=== PATIENT | female | born 1940 | race Caucasian/White ===

== ENCOUNTER 2017-06-08 06:01 | Observation (INO) | payer MEDICARE, OTHER ==
--- NOTE | 2017-06-08 06:14 | ERNOTE ---
Medical Problem HPI - Narrative Date of Service: 06/08/17 - General Time Seen by Provider: 06/08/17 06:03 Source: patient Exam Limitations: no limitations - Immun/Allergies/Home Medications Immunizations: IMMUNIZATION HX Immunizations Up to Date Yes History of Influenza Vaccine No Hx Pneumococcal Vaccination No Allergies/Adverse Reactions: Allergies gabapentin [From Neurontin] Allergy (Severe, Verified 06/08/17 06:12) Swelling (Other) Dizziness Penicillins Adverse Reaction (Mild, Verified 06/08/17 06:12) BLISTERS ON HANDS/FEET sulfadiazine [Sulfadiazine] Adverse Reaction (Mild, Verified 06/08/17 06:12) N/V Home Medications: HOME MEDICATIONS Omeprazole [Prilosec] 40 mg PO DAILY 12/21/13 [Last Taken 04/07/14] Polyethylene Glycol 3350 [Miralax] 17 gm PO HS 11/20/15 [Last Taken Unknown] traMADol HCL [Ultram] 50 mg PO BID PRN 11/20/15 [Last Taken Unknown] Levothyroxine Sodium [Synthroid] 50 mcg PO DAILY 06/08/17 [Last Taken Unknown] Methotrexate Sodium [Methotrexate] 15 mg PO Q7D 06/08/17 [Last Taken Unknown] - History of Present History Narrative: Patient presents to the emergency room after she started having substernal chest pain approximately 2 hours prior to presentation to the ER. She was brought in via ambulance for chest pain which is substernal and it raises into the upper chest area. In route EMS staff administered aspirin 325 and one nitroglycerin tablet sublingually and the pain went away. Patient denies having had any heart attacks in the past or coronary artery disease she denies any syncope or near syncope symptoms there was no radiation of the chest pain anywhere history of diaphoresis Review of Systems - Review of Systems Constitutional: Present: no symptoms reported EYE: Present: no symptoms reported ENT: Present: no symptoms reported Respiratory: Present: no symptoms reported Cardiology: Present: See HPI Gastrointestinal/Abdominal: Present: no symptoms reported Genitourinary: Present: no symptoms reported Musculoskeletal: Present: no symptoms reported Skin: Present: no symptoms reported - Patient's Past Medical History Patient History - Medical: Arthritis, GERD, Other Patient History - Cardiac/Respiratory: No pertinent hx Patient History - Cancer: No Hx of Cancer Patient History - Surgical Procedures: Colonoscopy, Hysterectomy, Other Patient History - Other: None - Family History Father Family History - Medical: , Rheumatoid Arthritis Family History - Cardiac/Respiratory: Coronary Heart Disease Mother Family History - Medical: Family History - Cardiac/Respiratory: Coronary Heart Disease, Myocardial Infarction - Social History Abuse History: No History of abuse Psych History: No pertinent hx - Immunizations Immunizations Up to Date: Yes Hx Pneumococcal Vaccination: No History of Influenza Vaccine: No Physical Exam - Physical Exam General Appearance: Present: wd/wn, alert, no apparent distress - by the time I saw the patient she was completely chest pain-free sitting up in bed without any complaints. Head Exam: Present: normal inspection, no evidence of injury Respiratory: Present: no respiratory distress, normal breath sounds, no accessory muscle use, chest nontender, lungs clear Cardiovascular/Chest: Present: regular rate, rhythm, no murmur, normal peripheral pulses Extremity Exam: Present: normal inspection, normal range of motion ED Progress - Results and Orders Patient's Lab Results:: I have reviewed the patient's lab results. - Vital Signs Patient's Vital Signs:: I have reviewed the patient's vital signs. - EKG EKG: NSR EKG read: Interp. by me - I do not see any signs of ST segment depression or elevation patient's rhythm is normal sinus. - X-Ray X-Ray #1 X-Ray: chest - read as no acute process, and same as previous CXR Plan - Plan Plan: This patient had chest pain at rest which was improved with 1 nitroglycerin and 325 mg of aspirin. She subsequently in our emergency room had more chest pains approximately 4 out of 10 which 2 mg of morphine reduced to 1 out of 10. It is the opinion of this examiner that this patient needs to be admitted to be observed for a second troponin level. Her EKG has remained normal sinus rhythm through out. The hospitalist was contacted in regards to this patient. This case was discussed with Dr. Nava who agreed to admit the patient for observation for chest pain. Departure Clinical Impression: Chest pain Qualifiers: Chest pain type: unspecified Qualified Code(s): R07.9 - Chest pain, unspecified - Departure Disposition: [facility] Condition: Fair Referrals: Zahira Han DO [Primary Care Provider] -
[2017-06-08 06:18] LABS: Hematocrit 39.6 % (37.0-47.0); Hemoglobin 13.2 gm/dL (12.5-16.0); Mean Cell Volume 97.5 fl (78-100); Mean Corpuscular Hemoglobin 32.5 pg (27-31); Mean Corpuscular Hgb Conc 33.3 g/dl (32-36); Neutrophil # 5.9 K/mm3 (1.3-6.0); Neutrophil % 79.8 % (42-75.0); Platelet Count 185 K/mm3 (150-450); Red Blood Count 4.06 M/mm3 (4.2-5.4); Red Cell Distribution Width 13.2 % (11.5-14.0); White Blood Count 7.4 K/mm3 (4.0-10.5)
[2017-06-08] MEDS ORDERED: MORPHINE SULFATE 2 MG/ML DISP.SYRIN ONE (06:37)
[2017-06-08 06:42] LABS: Troponin I Less than 0.017 ng/ml (0.00-0.10)
[2017-06-08] MEDS ORDERED: MORPHINE SULFATE 2 MG/ML DISP.SYRIN IV ONE (06:44)
[2017-06-08] MEDS ORDERED: NORMAL SALINE 1,000 ML IV ONE (06:44)
[2017-06-08 06:47] LABS: ALT 41 U/L (19-67); AST 77 U/L (0-48); Albumin * 3.8 gm/dl (3.4-5.0); Alkaline Phosphatase * 92 U/L (50-170); Anion Gap 11.1 mmol/L (6.8-13.8); BUN/Creatinine Ratio 18.5 (9.0-21.6); Bilirubin, Total 0.3 mg/dL (0.0-1.1); Blood Urea Nitrogen 15 mg/dL (3-23); CKMB 0.6 ng/mL (0.0-9.0); Ca. Corrected For Albumin 8.6 mg/dL (8.4-10.2); Calcium * 8.8 mg/dL (7.9-10.9); Carbon Dioxide 29.9 mmol/L (24-32.6); Chloride 103 mmol/L (97-106); Glucose * 101 mg/dL (70-110); Sodium 140 mmol/L (132-142); Total Protein 6.9 gm/dL (6.2-8.2)
[2017-06-08] MEDS ORDERED: PANTOPRAZOLE SODIUM 40 MG in NORMAL SALINE 100 ML IV ONE (08:42)
[2017-06-08] MEDS ORDERED: HYDROcodone/ACETAMINOPHEN 1 EACH TABLET PO PRN (08:43)
--- NOTE | 2017-06-08 08:51 | HP ---
Chief Complaint - Chief Complaint Date of Service: 06/08/17 Time of Service: 08:45 Chief Complaint: chest pain History of Present Illness: Luisana Alves, is a 76-year-old white female, with previous medical history of rheumatoid arthritis, spinal stenosis, hyperlipidemia, hypothyroidism , gastroesophageal reflux disease, patient of Dr. Zahira Han, who was admitted on 06/08/2017 because of chest pain. The night before admission, the patient started having substernal chest pain, starting from her epigastric area to her suprasternal notch area, sharp in character, more than 10 over 10, nonradiating. She took her Vicodin done and it did not help so she went to the emergency room where her first EKG and troponin were within normal limits she was then admitted under our chest pain protocol. In transit, she got ASA and NTG and by the time she arrived at the ER she was CP free. The patient had stress test 1 year ago for similar symptoms and that was negative. - Patient's Past Medical History Patient History - Medical: Arthritis, GERD, Rheumatoid Arthritis, Other Patient History - Cardiac/Respiratory: No pertinent hx Patient History - Cancer: No Hx of Cancer Patient History - Surgical Procedures: Colonoscopy, Hysterectomy, Other Patient History - Other: None - Family History Father Family History - Medical: , Rheumatoid Arthritis Family History - Cardiac/Respiratory: Coronary Heart Disease Mother Family History - Medical: Family History - Cardiac/Respiratory: Coronary Heart Disease, Myocardial Infarction - Social History Living Situations: home Abuse History: No History of abuse Psych History: No pertinent hx Smoking Status: Former smoker Alcohol Use: occasionally Drug Use: none - Immunizations Immunizations Up to Date: Yes Hx Pneumococcal Vaccination: No History of Influenza Vaccine: No Review Of Systems (GEN) - Review of Systems Generalized/Overall Review: Absent: Chills, Fever Respiratory: Absent: Cough, Shortness of Breath, Orthopnea Cardiac: Present: Chest Pain. Absent: Edema, Palpitations Abdominal: Present: Nausea, Vomiting Genitourinary: Absent: Urgency, Frequency Musculoskeletal: Present: Joint Pain Immunizations: IMMUNIZATION HX Immunizations Up to Date Yes History of Influenza Vaccine No Hx Pneumococcal Vaccination No Allergies/Adverse Reactions: Allergies Allergy/AdvReac Type Severity Reaction Status Date / Time gabapentin [From Neurontin] Allergy Severe Swelling Verified 06/08/17 06:12 (Other) Penicillins AdvReac Mild BLISTERS Verified 06/08/17 06:12 ON HANDS/FEET sulfadiazine [Sulfadiazine] AdvReac Mild N/V Verified 06/08/17 06:12 Home Medications: HOME MEDICATIONS Omeprazole [Prilosec] 40 mg PO DAILY 12/21/13 [Last Taken 04/07/14] Polyethylene Glycol 3350 [Miralax] 17 gm PO HS 11/20/15 [Last Taken Unknown] traMADol HCL [Ultram] 50 mg PO BID PRN 11/20/15 [Last Taken Unknown] Levothyroxine Sodium [Synthroid] 50 mcg PO DAILY 06/08/17 [Last Taken Unknown] Methotrexate Sodium [Methotrexate] 15 mg PO Q7D 06/08/17 [Last Taken Unknown] Exam - Exam Vital Signs: Vital Signs - Last Taken Temp 36.5 C 06/08/17 06:02 Pulse 71 06/08/17 08:02 Resp 12 06/08/17 08:02 BP 143/80 06/08/17 08:02 Pulse Ox 96 06/08/17 08:02 Constitutional: Present: Alert, Oriented x3, Cooperative ENT Exam: Present: hearing grossly normal Eye Exam: bilateral eye: normal inspection, PERRL, EOMI Neck: Present: supple Respiratory: Present: normal breath sounds, No rales, No wheezing Cardiovascular/Chest: Present: regular rate, rhythm, no JVD, no murmur Abdomen: Present: Normal bowel sounds, soft, nondistended, tender - slightly, epigastric Extremity: Present: no pedal edema, no calf tenderness Diagnostic Studies: Laboratory Results WBC 7.4 K/mm3 (4.0-10.5) 06/08/17 06:15 RBC 4.06 M/mm3 (4.2-5.4) L 06/08/17 06:15 Hgb 13.2 gm/dL (12.5-16.0) 06/08/17 06:15 Hct 39.6 % (37.0-47.0) 06/08/17 06:15 MCV 97.5 fl (78-100) 06/08/17 06:15 MCH 32.5 pg (27-31) H 06/08/17 06:15 MCHC 33.3 g/dl (32-36) 06/08/17 06:15 RDW 13.2 % (11.5-14.0) 06/08/17 06:15 Plt Count 185 K/mm3 (150-450) 06/08/17 06:15 MPV 11.0 fl (6.0-9.5) H 06/08/17 06:15 Immature Gran % (Auto) 0.40 % (0.001-0.429) 06/08/17 06:15 Immature Gran # (Auto) 0.03 K/mm3 (0.000-0.0310) 06/08/17 06:15 Neutrophils % 79.8 % (42-75.0) H 06/08/17 06:15 Lymphocytes % 9.6 % (20-51) L 06/08/17 06:15 Monocytes % 8.1 % (0.0-9) 06/08/17 06:15 Eosinophils % 1.8 % (0.0-3.0) 06/08/17 06:15 Basophils % 0.3 % (0.0-1.0) 06/08/17 06:15 Nucleated RBC % 0.0 k/mm3 (0-1) 06/08/17 06:15 Neutrophils # 5.9 K/mm3 (1.3-6.0) 06/08/17 06:15 Lymphocytes # 0.7 k/mm3 (1.5-3.5) L 06/08/17 06:15 Monocytes # 0.6 k/mm3 (0.0-1.0) 06/08/17 06:15 Eosinophils # 0.1 k/mm3 (0.0-0.7) 06/08/17 06:15 Absolute Basophils 0.0 k/mm3 (0.0-0.1) 06/08/17 06:15 Sodium 140 mmol/L (132-142) 06/08/17 06:15 Plasma Sodium 140 mmol/L (130-142) 06/08/17 06:15 Potassium 4.0 mmol/L (3.4-4.6) 06/08/17 06:15 Chloride 103 mmol/L (97-106) 06/08/17 06:15 Carbon Dioxide 29.9 mmol/L (24-32.6) 06/08/17 06:15 Anion Gap 11.1 mmol/L (6.8-13.8) 06/08/17 06:15 BUN 15 mg/dL (3-23) 06/08/17 06:15 Creatinine 0.81 mg/dL (0.4-1.4) 06/08/17 06:15 Est GFR (Non-Af Amer) 73 mL/min (60-130) 06/08/17 06:15 BUN/Creatinine Ratio 18.5 (9.0-21.6) 06/08/17 06:15 Random Glucose 101 mg/dL (70-110) 06/08/17 06:15 Calcium 8.8 mg/dL (7.9-10.9) 06/08/17 06:15 Calcium Adj for Albumin 8.6 mg/dL (8.4-10.2) 06/08/17 06:15 Total Bilirubin 0.3 mg/dL (0.0-1.1) 06/08/17 06:15 AST 77 U/L (0-48) H 06/08/17 06:15 ALT 41 U/L (19-67) 06/08/17 06:15 Alkaline Phosphatase 92 U/L (50-170) 06/08/17 06:15 CK-MB (CK-2) 0.6 ng/mL (0.0-9.0) 06/08/17 06:15 Troponin I Less than 0.017 ng/ml (0.00-0.10) 06/08/17 06:15 Total Protein 6.9 gm/dL (6.2-8.2) 06/08/17 06:15 Albumin 3.8 gm/dl (3.4-5.0) 06/08/17 06:15 Assessment/Plan - Assessment/Plan (1) GERD (gastroesophageal reflux disease) Problem: Acute (2) Hypothyroidism Problem: Acute (3) Rheumatoid arthritis Problem: Acute (4) Chest pain Problem: Acute Qualifiers: Chest pain type: unspecified Qualified Code(s): R07.9 - Chest pain, unspecified (5) Abdominal pain Problem: Acute Qualifiers: Abdominal location: epigastric Qualified Code(s): R10.13 - Epigastric pain (6) Nausea Problem: Acute
[2017-06-08] MEDS ORDERED: MORPHINE SULFATE 10 MG/ML SYRG IV PRN (08:56)
[2017-06-08 09:10] LABS: Amylase * 67 U/L (25-115); Lipase 185 U/L (73-393)
[2017-06-08] MEDS: LEVOTHYROXINE SODIUM 50 MCG TABLET PO SCH (10:35)
[2017-06-08] MEDS ORDERED: POLYETHYLENE GLYCOL 3350 119 GM BTL PO SCH (21:00)
[2017-06-09] MEDS: LEVOTHYROXINE SODIUM 50 MCG TABLET PO SCH (06:21)
[2017-06-09 06:45] VITALS: BP 141/63
[2017-06-09] MEDS ORDERED: METHOTREXATE SODIUM 2.5 MG TABLET PO SCH (09:00)
--- NOTE | 2017-06-09 09:10 | DS ---
(1) Chest pain Problem: Acute Qualifiers: Chest pain type: unspecified Qualified Code(s): R07.9 - Chest pain, unspecified (2) GERD (gastroesophageal reflux disease) Problem: Chronic Description of Stay: ADMISSION DATE: 06/08/2017 DISCHARGE DATE: 06/09/[address] Nava: Luisana Alves, is a 76-year-old white female, with previous medical history of rheumatoid arthritis, spinal stenosis, hyperlipidemia, hypothyroidism , gastroesophageal reflux disease, patient of Dr. Zahira Han, who was admitted on 06/08/2017 because of chest pain. The night before admission, the patient started having substernal chest pain, starting from her epigastric area to her suprasternal notch area, sharp in character, more than 10 over 10, nonradiating. She took her Vicodin done and it did not help so she went to the emergency room where her first EKG and troponin were within normal limits she was then admitted under our chest pain protocol. In transit, she got ASA and NTG and by the time she arrived at the ER she was CP free. The patient had stress test 1 year ago for similar symptoms and that was negative. HOSPITAL COURSE: The patient was admitted to hospital for chest pain. She was monitored overnight on telemetry and had serial EKGs and cardiac enzymes, all of which were unremarkable. The patients presentation is most likely consistent with a GI etiology. The patient is already supposed to have an outpatient ERCP so I will make sure that this gets scheduled at [facility]. At the time of discharge, the patient was symptom free and felt back to her baseline. The patient was discharged home in stable condition. FOLLOW-UP APPOINTMENTS: -PCP, Dr. Han, on 06/09/2017 after being discharged from the hospital NEW OR CHANGED MEDICATIONS: None DISCONTINUED MEDICATIONS: None RADIOLOGY REPORTS: PA and lateral chest x-ray on 06/08/2017 showed: The lungs are hyperinflated; correlate for COPD. No focal consolidation. No pneumothorax or pleural effusion. Calcified granulomas again demonstrated. The cardiac silhouette mediastinal contours are unchanged. Atherosclerotic changes are present throughout the thoracic and visualized upper abdominal aorta. Scattered areas of parenchymal scarring. Pulmonary vasculature is normal. Degenerative changes. Decreased osseous mineralization. IMPRESSION: No acute pulmonary findings. Procedures Performed: none Discharge Disposition: Home self care Disposition: Home self-care Condition: Stable Discharge Activity: Activity as tolerated Discharge Diet: General/regular food Referrals: Zahira Han DO [Primary Care Provider] - Problem Oriented Discharge Instructions to Patient/Family: Gastroesophageal Reflux Disease, Adult, [id number], Chest Wall Pain Additional Patient Instructions (free text): Patient will follow-up with PCP today (06/09/2017) right after discharge from the hospital Complete Home Medications List: Complete Home Medication List: Omeprazole [Prilosec] 40 mg PO DAILY 12/21/13 Polyethylene Glycol 3350 [Miralax] 17 gm PO HS 11/20/15 traMADol HCL [Ultram] 50 mg PO BID PRN 11/20/15 Levothyroxine Sodium [Synthroid] 50 mcg PO DAILY 06/08/17 Methotrexate Sodium [Methotrexate] 15 mg PO Q7D 06/08/17 Vicodin 5-300 mg Tablet 5 mg PO QID PRN 06/08/17
== END 2017-06-09 10:20 | disposition home or self-care (01) ==
LOC: ER 06:01 → MS 07:42
PROVIDERS: ADMIT Internal Medicine; ATTEND Internal Medicine
DX: R07.9 Chest pain, unspecified (principal); K21.9 Gastro-esophageal reflux disease without esophagitis; R10.13 Epigastric pain; R11.0 Nausea; M06.9 Rheumatoid arthritis, unspecified; E78.5 Hyperlipidemia, unspecified; E03.9 Hypothyroidism, unspecified
CPT/HCPCS: 36415; 71020; 80053; 82150; 82553; 83690; 84484; 85025; 93005; 96365; 96374; 99284; G0378; J8610

== ENCOUNTER 2017-06-16 08:59 | Day surgery (SDC) | payer MEDICARE, OTHER ==
[~2017-06-16 08:59] MED LIST: ACETAMINOPHEN 325 MG TABLET PO PRN; ACETYLCHOLINE CHLORIDE 20 DROP KIT IO PRN; BUPIVACAINE HCL/PF 30 ML VIAL IJ PRN; CYCLOPENTOLATE HCL 20 DROP BTL RIGHTEYE PRN; DEXTROSE 5%-0.5 NORMAL SALINE 1,000 ML IV PRN; EPINEPHrine 1 MG/ML AMPUL IO PRN; HYALURONATE SODIUM 0.4 ML DISP.SYRIN IO PRN; HYALURONATE SODIUM 0.85 ML DISP.SYRIN IO PRN; LIDOCAINE HCL/PF 200 MG/5 ML AMPUL TP PRN; LIDOCAINE HCL/PF 5 ML VIAL IO PRN; NORMAL SALINE 3 ML BOX IV PRN
[2017-06-16] MEDS: TROPICAMIDE 150 DROP BTL RIGHTEYE PRN ×3 (09:19→09:39)
[2017-06-16] MEDS: PHENYLEPHRINE HCL 50 DROP BTL RIGHTEYE PRN ×3 (09:19→09:39)
[2017-06-16] MEDS ORDERED: DEXTROSE 5%-0.5 NORMAL SALINE 1,000 ML IV ONE (09:25)
[2017-06-16] MEDS: TETRACAINE HCL 150 DROP BTL OP PRN ×2 (10:50→11:40)
[2017-06-16 11:49] VITALS: BP 114/53
== END 2017-06-16 09:00 | disposition home or self-care (01) ==
LOC: AMB 08:59
PROVIDERS: ATTEND Ophthalmology
PROC: 08RJ3JZ Replacement of Right Lens with Synthetic Substitute, Percutaneous Approach (ICD-10-PCS; principal; 2017-06-16 10:15)
DX: H26.9 Unspecified cataract (principal); E03.9 Hypothyroidism, unspecified; E87.5 Hyperkalemia; K21.9 Gastro-esophageal reflux disease without esophagitis; M06.9 Rheumatoid arthritis, unspecified; Z68.21 Body mass index [BMI] 21.0-21.9, adult; Z87.891 Personal history of nicotine dependence

== ENCOUNTER 2017-06-30 09:33 | Day surgery (SDC) | payer MEDICARE, OTHER ==
[~2017-06-30 09:33] MED LIST changes: +CYCLOPENTOLATE HCL 20 DROP BTL LEFTEYE PRN; -CYCLOPENTOLATE HCL 20 DROP BTL RIGHTEYE PRN
[2017-06-30] MEDS: TROPICAMIDE 150 DROP BTL LEFTEYE PRN ×3 (10:08→10:28)
[2017-06-30] MEDS: PHENYLEPHRINE HCL 50 DROP BTL LEFTEYE PRN ×3 (10:08→10:28)
[2017-06-30] MEDS: TETRACAINE HCL 150 DROP BTL OP PRN ×2 (11:13→12:11)
[2017-06-30 12:16] VITALS: BP 123/53
== END 2017-06-30 09:34 | disposition home or self-care (01) ==
LOC: AMB 09:33
PROVIDERS: ATTEND Ophthalmology
PROC: 08RK3JZ Replacement of Left Lens with Synthetic Substitute, Percutaneous Approach (ICD-10-PCS; principal; 2017-06-30 10:40)
DX: H26.8 Other specified cataract (principal); K21.9 Gastro-esophageal reflux disease without esophagitis; E78.5 Hyperlipidemia, unspecified; E03.9 Hypothyroidism, unspecified; M06.9 Rheumatoid arthritis, unspecified; Z87.891 Personal history of nicotine dependence; Z68.21 Body mass index [BMI] 21.0-21.9, adult